=== PATIENT | male | born 1955 | race Caucasian/White ===

== ENCOUNTER 2018-07-28 11:37 | Day surgery (SDC) | payer BC ==
[2018-07-28] MEDS: NS 1,000 ML IV (11:45)
[2018-07-28] MEDS ORDERED: PROPOFOL 200 MG/20 ML VIAL As Ordered (12:21)
[2018-07-28] MEDS ORDERED: LIDOCAINE 2% INJ 100 MG/5 ML SDV (FOR ANES.) As Ordered (12:21)
== END 2018-07-28 13:48 | disposition home or self-care (01) ==
LOC: M OPP 11:37
DX: K62.1 Rectal polyp (principal); K64.3 Fourth degree hemorrhoids; K63.5 Polyp of colon; Z86.010 Personal history of colon polyps; I10 Essential (primary) hypertension; E11.9 Type 2 diabetes mellitus without complications; E78.00 Pure hypercholesterolemia, unspecified; Z79.84 Long term (current) use of oral hypoglycemic drugs; Z79.899 Other long term (current) drug therapy; Z87.891 Personal history of nicotine dependence; Z87.442 Personal history of urinary calculi; Z90.49 Acquired absence of other specified parts of digestive tract
CPT/HCPCS: 45385

== ENCOUNTER 2024-09-18 07:48 | Day surgery (SDC) | payer MEDICARE ==
[~2024-09-18] VITALS: Ht 177.8 cm; Wt 76.7 kg
[~2024-09-18 07:48] MED LIST: ACET650T PO; ALEV220C2 PO; AMLO1TAB24 PO; AMLO1TAB25 PO; ASPI325T5 PO; ATOR1TAB21 PO; CIPR500T89 PO; DICY-61 PO; JARD1TAB PO; METF500T13 PO; METF750T36 PO; NORV2TAB PO; PERC5TAB12 PO; SIMV40TA20 PO; TRUBCAP PO; ZOCO40TA PO; colace OR
[2024-09-18] MEDS ORDERED: propofoL 200 MG/20 ML VIAL As Ordered ONE (10:49)
[2024-09-18 11:15] VITALS: TEMP 97.1
[2024-09-18 11:35] VITALS: BP 123/80; O2SAT 94
== END 2024-09-18 12:00 | disposition home or self-care (01) ==
LOC: M OPP 07:48
PROVIDERS: ATTEND Surgery
DX: D12.6 Benign neoplasm of colon, unspecified (principal); Z86.0100 Personal history of colon polyps, unspecified; Z80.0 Family history of malignant neoplasm of digestive organs; K57.30 Diverticulosis of large intestine without perforation or abscess without bleeding; K64.2 Third degree hemorrhoids; I10 Essential (primary) hypertension; E78.00 Pure hypercholesterolemia, unspecified; R73.03 Prediabetes; Z88.5 Allergy status to narcotic agent; Z79.84 Long term (current) use of oral hypoglycemic drugs; Z79.899 Other long term (current) drug therapy

== ENCOUNTER → 2024-10-09 | Outpatient (CLI) | payer MEDICARE ==
[2024-10-09 10:41] LABS: BLOOD UREA NITROGEN 18 MG/DL (9-23); CREATININE FOR GFR 0.68 MG/DL (0.70-1.30); GLOMERULAR FILTRATION RATE > 60.0 (>42)
== END ==
LOC: M LAB 08:21
PROVIDERS: ATTEND Surgery
DX: K43.9 Ventral hernia without obstruction or gangrene (principal)

== ENCOUNTER → 2024-10-13 | Outpatient (CLI) | payer MEDICARE ==
[~2024-10-13] MED LIST changes: +ISOVUE-370 76% 100ML VIAL As Ordered ONE
== END ==
LOC: M RAD 10:32
PROVIDERS: ATTEND Surgery
DX: K43.9 Ventral hernia without obstruction or gangrene (principal); N28.1 Cyst of kidney, acquired
CPT/HCPCS: 74177; Q9967

== ENCOUNTER 2025-01-02 05:58 | Day surgery (SDC) | payer MEDICARE ==
[~2025-01-02] VITALS: Ht 177.8 cm; Wt 77.3 kg
[~2025-01-02 05:58] MED LIST changes: -ISOVUE-370 76% 100ML VIAL As Ordered ONE
[2025-01-02] MEDS ORDERED: QC F0.52 PO (06:36)
[2025-01-02] MEDS ORDERED: FOLI400T13 PO (06:36)
[2025-01-02] MEDS ORDERED: SUGAMMADEX SODIUM 500 MG/5 ML VIAL (BRIDION) As Ordered ONE (07:15)
[2025-01-02] MEDS ORDERED: LIDOCAINE 2% 100MG/5ML SDV (FOR ANES.) As Ordered ONE (07:15)
[2025-01-02] MEDS: LR 1,000 ML IV SCH (07:15)
[2025-01-02] MEDS ORDERED: ONDANSETRON 4MG 2ML VIAL As Ordered ONE (07:15)
[2025-01-02] MEDS ORDERED: ROCURONIUM BROMIDE 50MG/5ML VIAL As Ordered ONE (07:15)
[2025-01-02] MEDS ORDERED: KETOROLAC 30 MG/ML 1ML VIAL As Ordered ONE (07:15)
[2025-01-02] MEDS ORDERED: MIDAZOLAM INJ 2MG/2ML VIAL As Ordered ONE (07:15)
[2025-01-02] MEDS ORDERED: fentaNYL 100 MCG/2 ML INJECTION As Ordered ONE (07:15)
[2025-01-02] MEDS ORDERED: propofoL 200 MG/20 ML VIAL As Ordered ONE (07:15)
[2025-01-02] MEDS: ceFAZolin SOD 2 GM IV ONCE IV ONE (07:29)
[2025-01-02] MEDS ORDERED: ACETAMINOPHEN 1000MG/100ML IV BAG As Ordered ONE (07:44)
[2025-01-02] MEDS ORDERED: dexmedeTOMIDine (4MCG/ML)200MCG/50ML BTL (PRECEDEX) As Ordered ONE (07:58)
[2025-01-02] MEDS ORDERED: LABETALOL 100MG/20ML VIAL As Ordered ONE (08:11)
[2025-01-02] MEDS: BUPivacaine LIPOSOME/PF 266MG 20ML VIAL (13.3MG/ML)(EXPAREL) As Ordered ONE (09:02)
[2025-01-02] MEDS ORDERED: LR 1,000 ML IV SCH (09:20)
[2025-01-02] MEDS ORDERED: fentaNYL 100 MCG/2 ML INJECTION IV PRN (09:20)
[2025-01-02] MEDS ORDERED: ONDANSETRON 4MG 2ML VIAL IV PRN (09:20)
[2025-01-02 10:00] VITALS: BP 128/76; TEMP 97.6; O2SAT 94
== END 2025-01-02 11:00 | disposition home or self-care (01) ==
LOC: M SDC 05:58
PROVIDERS: ATTEND Surgery
DX: K43.0 Incisional hernia with obstruction, without gangrene (principal); G47.9 Sleep disorder, unspecified; Z88.5 Allergy status to narcotic agent; Z79.899 Other long term (current) drug therapy; Z72.0 Tobacco use
CPT/HCPCS: 49594; 93005; C1765; C1781; J0131; J0665; J0666; J0690; J1100; J1885; J1920; J2250; J2405; J3010; S2900